=== PATIENT | female | born 2005 | race Caucasian/White ===

== ENCOUNTER 2025-05-13 14:04 | Emergency (ER) | payer OTHER, SELFPAY ==
[2025-05-13 14:12] VITALS: BP 119/85
--- NOTE | 2025-05-13 14:36 | ED.GENMED ---
History of Present Illness
General
Chief Complaint: Crisis Evaluation
Time Seen by Provider: 05/13/25 14:35
History of Present Illness
History of Present Illness:
PAST MEDICAL HISTORY AND REVIEW OF OLD RECORDS
- The patient has no significant past medical history; depression. I reviewed records, the patient was seen here in 2010 with a hand injury.
Note:
CHIEF COMPLAINT(S)
Thoughts of self-harm following a recent breakup.
HISTORY OF PRESENT ILLNESS
The patient is a 19-year-old female who presented with thoughts of self-harm. These thoughts appear to have been triggered by a recent breakup with her boyfriend a couple of weeks ago. The patient reports that she has no intentions of acting on
these thoughts and has not attempted suicide in the past. The patient denies experiencing any chest pain, abdominal pain, fever, or other acute medical symptoms. She also denies having taken any medications such as paracetamol, aspirin, or any other
substances in a harmful manner. The patient is currently in school, although the specific institution was not disclosed.
ADDITIONAL HISTORY OBTAINED FROM SOURCES OTHER THAN THE PATIENT
Information was relayed by 'Sheri,' who is working on arranging resources and referrals for the patient.
SOCIAL DETERMINANTS AFFECTING HEALTH
The patient is going through a breakup, which has contributed to her emotional distress. It is also relevant to note the presence of firearms in the home, although they are reported to be taken away, locked up, or inaccessible to her.
PHYSICAL EXAM
General: Alert, no acute distress.
Skin: Warm, dry.
Head: Normocephalic, atraumatic.
Neck: Supple, trachea midline.
Eye, Ears, Nose, and Throat: Oral mucosa moist.
Cardiovascular: Normal peripheral perfusion, No edema.
Respiratory: Respirations are non-labored.
Gastrointestinal: Abdomen nondistended.
Back: Normal range of motion, Normal alignment.
Musculoskeletal: Normal range of motion, normal strength.
Neurological: Alert and oriented to person, place, time, and situation, No focal neurological deficit observed.
Psychiatric: Cooperative, appropriate mood & affect. She is pleasant. She is interactive. She has reasonable insight and judgment.
PLAN
Release the patient with close follow-up and resources as arranged by Sheri. The resources and referrals are intended to provide the patient with support and guidance. Ensure firearms remain inaccessible to the patient.
DIFFERENTIAL DIAGNOSIS
The Differential Diagnosis includes, in no particular order and is not limited to:
1. Adjustment disorder with depressed mood
2. Major depressive disorder
3. Generalized anxiety disorder
4. Acute stress reaction
5. Substance-induced mood disorder
6. Bipolar disorder
7. Post-traumatic stress disorder
8. Borderline personality disorder
9. Bereavement-related depression
10. Persistent depressive disorder
SUMMARY OF ENCOUNTER
The patient, a 19-year-old female, was seen in the emergency department following thoughts of self-harm, which were reportedly triggered by a recent breakup. Although the patient expressed having these thoughts, she did not express a plan or intent
to act on them. Sheri, from crisis management, evaluated the patient and agreed with the decision for outpatient management, emphasizing the need for close follow-up and arranging resources for the patient prior to discharge. No acute medical symptoms
were noted, thus focusing the management on psychiatric support and ensuring safety.
DISPOSITION
Discharge.
PLAN
Release the patient with close outpatient follow-up and resources as arranged by Sheri.
MEDICAL DECISION MAKING
- Number and Complexity of Problems Addressed: Chronic conditions affecting care include thoughts of self-harm triggered by a recent breakup. Differential diagnosis included: Adjustment disorder with depressed mood, Major depressive disorder,
Generalized anxiety disorder, Acute stress reaction, Substance-induced mood disorder, Bipolar disorder, Post-traumatic stress disorder, Borderline personality disorder, Bereavement-related depression, Persistent depressive disorder.
- Data:
Category 2: Clinical information was obtained from an independent historian, named Sheri, who is working to arrange resources and referrals for the patient.
Category 3: Discussion of management with Sheri from crisis management.
- Risk: Consideration of Admission/Observation: Escalation of care, including admission/observation, was considered given the complexity and risk of the patients presenting complaint and exam findings. However, ultimately I feel the patient is safe
for outpatient management with close follow-up. Reasoning: Work-up reassuring, does not reveal any acute life/organ-threatening processes, patients symptoms well controlled upon reevaluation, reexamination is reassuring, vitals are stable, patient
agreeable with discharge, reliable for follow-up. Care significantly affected by Social Determinants of Health due to emotional distress from recent breakup and presence of firearms in the home.
DIAGNOSIS
Adjustment disorder with depressed mood (ICD-10: F43.21).
Phy Exam
Physical Exam
Physical Exam:
See HPI
Course
Orders/Labs/Results
Orders:
Orders
05/13/25 14:18
1:1 Observation - Suicide/ Violent Behavior As Directed
Crisis Consult Urgent
Reason for Consult: SI
Vital Signs
Initial and Last Documented VS:
Initial Vital Signs
Temp Pulse Resp BP Pulse Ox
36.2 C 72 16 119/85 99
05/13/25 14:12 05/13/25 14:12 05/13/25 14:12 05/13/25 14:12 05/13/25 14:12
Last Documented Vital Signs
Temp Pulse Resp BP Pulse Ox
36.2 C 72 16 119/85 99
05/13/25 14:12 05/13/25 14:12 05/13/25 14:12 05/13/25 14:12 05/13/25 14:36
*Pulse Oximetry
SaO2: 99
Oxygen Mode of Delivery: Room air
Patient hypoxic: no
*Critical Care Note
Total Time (30-74mins, 75-104mins- exclusive of procedures): Not Applicable
ED Attending Note
-
Portions of this chart may have been created with voice recognition software.� Occasional wrong word or��sound alike� substitutions may have occurred due to the inherent limitations of voice recognition software.
Discharge Plan
Interventions
Interventions:
*Risk Screen - Suicide Last Done: 05/13/25 14:12
*General Assessment Last Done: 05/13/25 14:12
*Neglect/Abuse Screening Last Done: 05/13/25 14:12
*ED COVID-19 Vaccine History Last Done: 05/13/25 14:12
Discharge Date and Time
Print Language: ITALIAN
== END 2025-05-13 16:24 | disposition home or self-care (01) ==
LOC: EMR 14:04
PROVIDERS: EMERGENCY PHYSICIAN Emergency Medicine
DX: F43.21 Adjustment disorder with depressed mood (principal); Z63.0 Problems in relationship with spouse or partner
CPT/HCPCS: 99283